=== PATIENT | female | born 1965 ===

== ENCOUNTER 2018-01-08 10:20 | Outpatient (CLI) | payer OTHER ==
[~2018-01-08] VITALS: Ht 167.6 cm; Wt 73.9 kg
== END 2018-01-08 10:40 | disposition home or self-care (01) ==
LOC: OFIC 805 10:20
DX: J35.01 Chronic tonsillitis (principal); J31.0 Chronic rhinitis; H61.23 Impacted cerumen, bilateral

== ENCOUNTER 2022-06-22 05:00 | Day surgery (SDC) | payer OTHER ==
[~2022-06-22] VITALS: Ht 167.6 cm; Wt 71.7 kg
[~2022-06-22 05:00] MED LIST: BIKTARVY 50-201 EACH PO; TIROSINT25 MCG PO; TOPROL XL50 M1 PO
== END 2022-06-22 22:45 | disposition home or self-care (01) ==
LOC: CIR.AMB 05:00
PROVIDERS: ATTEND Surgery
DX: A63.0 Anogenital (venereal) warts (principal); Z20.822 Contact with and (suspected) exposure to COVID-19; K62.89 Other specified diseases of anus and rectum; R85.610 Atypical squamous cells of undetermined significance on cytologic smear of anus (ASC-US); Z88.0 Allergy status to penicillin; Z88.6 Allergy status to analgesic agent; I10 Essential (primary) hypertension; I25.2 Old myocardial infarction